=== PATIENT | female | born 1980 | race Caucasian/White ===

== ENCOUNTER 2020-03-22 11:41 | Emergency (ER) | payer OTHER ==
[~2020-03-22] VITALS: Ht 167.6 cm; Wt 77.1 kg
[2020-03-22] MEDS ORDERED: FLEXERIL PO (12:37)
[2020-03-22] MEDS ORDERED: IBUPROFEN 800800 M1 PO (12:37)
[2020-03-22 12:48] VITALS: BP 135/80
== END 2020-03-22 12:48 | disposition home or self-care (01) ==
LOC: M.ERS 11:41
DX: S46.911A Strain of unspecified muscle, fascia and tendon at shoulder and upper arm level, right arm, initial encounter (principal); W10.8XXA Fall (on) (from) other stairs and steps, initial encounter; Y93.89 Activity, other specified; Y92.89 Other specified places as the place of occurrence of the external cause; Y99.8 Other external cause status